=== PATIENT | female | born 1960 | race Two or more races ===

== ENCOUNTER 2022-02-04 09:32 | Outpatient (CLI) | payer OTHER | END 2022-02-04 10:09 | disposition home or self-care (01) | LOC: MAMO-SONO 09:32 | DX: J44.9 Chronic obstructive pulmonary disease, unspecified (principal); N64.4 Mastodynia; Z12.31 Encounter for screening mammogram for malignant neoplasm of breast ==

== ENCOUNTER 2022-02-19 13:12 | Outpatient (CLI) | payer OTHER | END 2022-02-19 13:13 | disposition home or self-care (01) | LOC: NUCLEAR 13:12 | PROVIDERS: ATTEND General Practice | DX: M81.0 Age-related osteoporosis without current pathological fracture (principal) ==

== ENCOUNTER → 2023-12-29 08:49 | Outpatient (CLI) | payer OTHER ==
[2023-12-29 09:37] LABS: URINE APPEARANCE Clear; URINE BILIRRUBIN Negative (NEGATIVE); URINE BLOOD Negative; URINE COLOR Yellow; URINE GLUCOSE Negative (NEGATIVE); URINE KETONE Negative (NEGATIVE); URINE LEUKOCYTE Negative; URINE NITRATE Negative; URINE PROTEIN Negative (NEGATIVE); URINE UROBILINOGEN 0.2 E.U./dl
[2023-12-29 09:39] LABS: URINE BACTERIA 11.3 uL (0.0-1933); URINE EPITHELIAL CELLS 2.7 uL (0.0-38.8)
[2023-12-29 09:48] LABS: URINE WBC 1.3 uL (0.0-23.2)
[2023-12-29 09:54] LABS: HEMATOCRIT 43.5 % (36.0-45.00); MEAN CELL VOLUME 97.3 fL (80.00-100.00); MEAN CORPUSCULAR HEMOGLOBIN 33.6 pg (27.00-32.0); MEAN CORPUSCULAR HGB CONC 34.5 g/dl (32.0-36.0); PLATELET COUNT 206 K/uL (150-450); RED BLOOD COUNT 4.47 M/uL (4.00-6.00); RED CELL DISTRIBUTION WIDTH 14.4 % (11.5-14.5)
[2023-12-29 10:46] LABS: ALBUMIN 4.1 gm/dL (3.4-5.0); BILIRUBIN TOTAL 0.37 mg/dL (0.3-1.2); CALCIUM 9.5 mg/dL (8.5-10.1); CHOL HDL RATIO 2.7 (0-5.0); CREATININE SERUM 0.74 mg/dL (0.55-1.02); GFR 79.52; GLOBULINA 3.1 G/DL (2.4-3.5); POTASSIUM 4.15 mEq/L (3.5-5.1); TOTAL PROTEIN 7.2 gm/dL (6.4-8.2); TSH 1.17 uIU/mL (0.358-3.74)
== END | disposition home or self-care (01) ==
LOC: LAB 08:49
PROVIDERS: ATTEND General Practice
DX: R42 Dizziness and giddiness (principal); R73.01 Impaired fasting glucose; I11.9 Hypertensive heart disease without heart failure